=== PATIENT | female | born 1940 | race Caucasian/White ===

== ENCOUNTER 2018-02-02 11:30 | Outpatient (CLI) | payer MEDICARE ==
[~2018-02-02 11:30] MED LIST: NO HOME MEDICATIONS
== END 2018-02-02 23:59 | disposition home or self-care (01) ==
LOC: WOU 11:30
PROVIDERS: ATTEND Specialist
DX: Z09 Encounter for follow-up examination after completed treatment for conditions other than malignant neoplasm (principal); Z86.31 Personal history of diabetic foot ulcer; Z87.891 Personal history of nicotine dependence; Z86.718 Personal history of other venous thrombosis and embolism; M21.379 Foot drop, unspecified foot; E11.9 Type 2 diabetes mellitus without complications; M19.071 Primary osteoarthritis, right ankle and foot
CPT/HCPCS: G0463; Z7610; A6402

== ENCOUNTER 2018-02-18 11:00 | Outpatient (CLI) | payer MEDICARE | END 2018-02-18 23:59 | disposition home or self-care (01) | LOC: WOU 11:00 | PROVIDERS: ATTEND Podiatrist Foot & Ankle Surgery | DX: M21.371 Foot drop, right foot (principal); B35.1 Tinea unguium; R26.81 Unsteadiness on feet | CPT/HCPCS: G0463 ==

== ENCOUNTER 2018-05-03 09:50 | Outpatient (CLI) | payer MEDICARE | END 2018-05-03 23:59 | disposition home or self-care (01) | LOC: WOU 09:50 | PROVIDERS: ATTEND Podiatrist Foot & Ankle Surgery | DX: M20.42 Other hammer toe(s) (acquired), left foot (principal); M20.41 Other hammer toe(s) (acquired), right foot; M71.9 Bursopathy, unspecified; B35.1 Tinea unguium | CPT/HCPCS: G0463 ==

== ENCOUNTER 2018-05-25 10:20 | Outpatient (CLI) | payer MEDICARE | END 2018-05-25 23:59 | disposition home or self-care (01) | LOC: WOU 10:20 | PROVIDERS: ATTEND Specialist | DX: S91.215A Laceration without foreign body of left lesser toe(s) with damage to nail, initial encounter (principal); L03.032 Cellulitis of left toe; X58.XXXA Exposure to other specified factors, initial encounter; Y92.89 Other specified places as the place of occurrence of the external cause; M19.071 Primary osteoarthritis, right ankle and foot; E11.9 Type 2 diabetes mellitus without complications; Z86.718 Personal history of other venous thrombosis and embolism; Z87.891 Personal history of nicotine dependence | CPT/HCPCS: 11730; A6402 ==

== ENCOUNTER 2018-07-08 10:45 | Outpatient (CLI) | END 2018-07-08 23:59 | disposition home or self-care (01) | LOC: WOU 10:45 | PROVIDERS: ATTEND Podiatrist Foot & Ankle Surgery | DX: M79.672 Pain in left foot (principal); M79.671 Pain in right foot; L84 Corns and callosities; B35.1 Tinea unguium | CPT/HCPCS: A6402; G0463 ==

== ENCOUNTER 2018-09-09 08:34 | Outpatient (CLI) | payer MEDICARE | END 2018-09-09 23:59 | disposition home or self-care (01) | LOC: WOU 08:34 | PROVIDERS: ATTEND Podiatrist Foot & Ankle Surgery | DX: M79.675 Pain in left toe(s) (principal); M79.674 Pain in right toe(s); B35.1 Tinea unguium; R60.0 Localized edema; L85.3 Xerosis cutis | CPT/HCPCS: G0463 ==

== ENCOUNTER 2019-03-22 16:06 | Emergency (ER) | payer MEDICARE ==
[~2019-03-22] VITALS: Ht 170.2 cm; Wt 73.9 kg
[2019-03-22 16:18] VITALS: BP 162/71
[2019-03-22] MEDS ORDERED: FLUORESCEIN SODIUM OPHTH 1 EA STRIP ONE (17:00)
--- NOTE | 2019-03-22 17:27 | NUR ---
RECEIVED VERBAL ORDER TO GIVE TETRACAINE 2 DROPS ON RIGHT EYE. ORDER NOTED ANDC ARRIED OUT. PATIENT IMMEDIATELY FELT RELIEF.
--- NOTE | 2019-03-22 17:28 | NUR ---
Patient discharged to home in stable condition. Written and verbal after care instructions given. Patient verbalizes understanding of instruction.
[2019-03-22] MEDS ORDERED: TETRAcaine 5 ML BOTTLE EACHEYE ONE (17:30)
== END 2019-03-22 17:29 | disposition home or self-care (01) ==
LOC: ER 16:13
DX: H10.213 Acute toxic conjunctivitis, bilateral (principal); E11.9 Type 2 diabetes mellitus without complications; Z98.890 Other specified postprocedural states; Z88.6 Allergy status to analgesic agent; Z88.5 Allergy status to narcotic agent
CPT/HCPCS: 99282; A6410

== ENCOUNTER 2022-10-14 10:42 | Outpatient (CLI) | payer MEDICARE | END 2022-10-14 23:59 | disposition home or self-care (01) | LOC: WOU 10:42 | PROVIDERS: ATTEND Specialist | DX: E11.621 Type 2 diabetes mellitus with foot ulcer (principal); L97.511 Non-pressure chronic ulcer of other part of right foot limited to breakdown of skin; M21.532 Acquired clawfoot, left foot; Z86.718 Personal history of other venous thrombosis and embolism; K21.9 Gastro-esophageal reflux disease without esophagitis; Z87.11 Personal history of peptic ulcer disease; K58.9 Irritable bowel syndrome, unspecified | CPT/HCPCS: 17250; A6209; G0463 ==